=== PATIENT | male | born 1975 | race Caucasian/White ===

== ENCOUNTER 2017-11-28 11:07 | Emergency (ER) | payer OTHER ==
[2017-11-28 11:26] VITALS: BP 185/103; PULSE 62; RESP 18; TEMP 97.3; O2SAT 100
[2017-11-28] MEDS ORDERED: PRED5PAK PO (14:19)
[2017-11-28 14:25] VITALS: BP 157/102; PULSE 82; RESP 16; O2SAT 100
--- NOTE | 2017-11-28 14:29 | PD ---
HPI Chief Complaint: Musculoskeletal Complaint Time Seen by Provider: 14:13 Travel History International Travel<30 days: No Contact w/Intl Traveler<30days: No Traveled to known affect area: No History of Present Illness HPI 42-year-old right-hand dominant male with PMH of gout, arthritis presents to the ED for evaluation of ~1 week history of redness, pain and limitation to range of motion of the index finger of right hand. He denies numbness, tingling , weakness of the extremity. Patient states that these episodes are exactly the same as previous episodes of gout and arthritis. He denies known injury but states that he was working on the computer more than usual before onset of symptoms. He states that he took colchicine 2 days ago with no improvement of symptoms. [facility] States that when he has symptoms like this in the past they have given him steroid injections. He was here today requesting a steroid injection. PFSH Social History Alcohol Use: No Tobacco Use: No Substance Use: No Allergies-Medications (Allergen,Severity, Reaction): Coded Allergies: No Known Allergies (Unverified , 11/28/17) Reported Meds & Prescriptions Reported Meds & Active Scripts Active Prednisone (21) 5 mg tab Dose Pack (Prednisone) 5 Mg Dspk 5 Mg PO DIRECTED Review of Systems Except as stated in HPI: all other systems reviewed are Neg Physical Exam Narrative GENERAL: Well-nourished, well-developed white male in no acute distress. SKIN: Focused skin assessment warm/dry. HEAD: Normocephalic. EYES: No scleral icterus. No injection or drainage. NECK: Supple, trachea midline. No JVD or lymphadenopathy. CARDIOVASCULAR: Regular rate and rhythm without murmurs, gallops, or rubs. RESPIRATORY: Breath sounds equal bilaterally. No accessory muscle use. GASTROINTESTINAL: Abdomen soft, non-tender, nondistended. MUSCULOSKELETAL: No cyanosis, or edema. FOCUSED RIGHT UPPER EXTREMITY EXAM: 2+ radial pulse. Mild erythema and edema of the radial aspect of the distal PIP joint of the index finger of the right hand. Patient retains full, active ROM of the digits of the hand and the wrist. Refill less than 2 seconds. Sensation intact to light touch distally. BACK: Nontender without obvious deformity. No CVA tenderness. Data Data Last Documented VS Vital Signs Date Time Temp Pulse Resp B/P (MAP) Pulse Ox O2 Delivery O2 Flow Rate FiO2 11/28/17 11:26 97.3 62 18 185/103 (130) 100 MDM Medical Decision Making Medical Screen Exam Complete: Yes Emergency Medical Condition: Yes Differential Diagnosis Gout versus OA versus tendonitis versus other Narrative Course 42-year-old right-hand dominant male with PMH of gout, arthritis presents to the ED for evaluation of ~1 week history of redness, pain and limitation to range of motion of the index finger of right hand. He denies numbness, tingling , weakness of the extremity. Patient states that these episodes are exactly the same as previous episodes of gout and arthritis. He denies known injury but states that he was working on the computer more than usual before onset of symptoms. He states that he took colchicine 2 days ago with no improvement of symptoms. He is here today requesting a steroid injection. Vitals reviewed. Patient's hypertensive on presentation, no complaints related to end organ damage. On exam there is erythema of the distal PIP of the index finger of the right hand along with a little edema. Exam is otherwise unremarkable. He states that [facility] but all the physicians are out for a meeting. Patient is prescribed 5 mg Medrol Dosepak. He is instructed to [facility]up with the [facility]. He is stable and discharged home. Diagnosis Primary Impression: Gouty arthritis Referrals: [facility] Additional Instructions: Rest, hydrate. Return to normal now gentle activity as tolerated. Take steroids as prescribed. [facility] your high blood pressure today. Return to the ED for any urgent or emergent medical condition. Med/Other Pt SpecificInfo: Prescription(s) given Scripts Prednisone (21) 5 mg tab Dose Pack (Prednisone (21) 5 mg tab Dose Pack) 5 Mg Dspk 5 MG PO DIRECTED for Inflammation, #1 DSPK 0 Refills Prov: Tracy Shaikh DO 11/28/17 Disposition: 01 DISCHARGE HOME Condition: Stable Crystal Agustin Nov 28, 2017 14:29
== END 2017-11-28 14:42 | disposition home or self-care (01) ==
LOC: NEPK 11:07
DX: M10.9 Gout, unspecified (principal); M19.041 Primary osteoarthritis, right hand; I10 Essential (primary) hypertension; R60.9 Edema, unspecified; Z88.8 Allergy status to other drugs, medicaments and biological substances
CPT/HCPCS: 99283